=== PATIENT | female | born 2005 | race Caucasian/White ===

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

== ENCOUNTER → 2024-04-23 | Outpatient (CLI) | payer OTHER ==
[2024-04-23 20:18] LABS: Candida Group, PCR NOT DETECTED (NOT DETECT); Candida glabrata-krusei, PCR NOT DETECTED (NOT DETECT)
[2024-04-23 20:19] LABS: Bacterial Vaginosis PCR Positive (NEGATIVE)
[2024-04-23 20:49] LABS: Chlamydia Trachomatis Vaginal NOT DETECTED (NOT DETECT); Neisseria Gonorrhoea Vaginal NOT DETECTED (NOT DETECT)
[2024-04-26 09:36] LABS: HEPATITIS B SURFACE ANTIGEN Negative (Negative)
[2024-04-26 16:43] LABS: HIV 1,2 COMBO ANTIGEN/ANTIBODY Negative (Negative)
[2024-04-26 16:48] LABS: HEPATITIS C AB CIA INTERP Negative (Negative); HEPATITIS C ANTIBODY CIA INDEX 0.09 IV
== END | disposition home or self-care (01) ==
LOC: LAB SHORT 17:10 → LAB 17:10
PROVIDERS: Registered Nurse Community Health
DX: Z11.3 Encounter for screening for infections with a predominantly sexual mode of transmission (principal); Z20.2 Contact with and (suspected) exposure to infections with a predominantly sexual mode of transmission
CPT/HCPCS: 81515; 86592; 86803; 87340; 87389; 87491; 87591

== ENCOUNTER → 2025-01-28 | Outpatient (CLI) | payer OTHER ==
[~2025-01-28] MED LIST changes: +CEPH500 PO
== END ==
LOC: LAB 18:51 → LAB SHORT 18:51
DX: Z34.81 Encounter for supervision of other normal pregnancy, first trimester (principal)
CPT/HCPCS: 87081; 87150

== ENCOUNTER 2025-02-20 17:22 | Emergency (ER) | payer OTHER ==
[~2025-02-20] VITALS: Ht 157.5 cm; Wt 90.7 kg
[2025-02-20 18:19] VITALS: BP 140/63
[2025-02-21] MEDS ORDERED: PRENATAL TABLE1 EAC2 PO (08:11)
== END 2025-02-20 18:34 | disposition left against medical advice (07) ==
LOC: ER 17:22
DX: O99.891 Other specified diseases and conditions complicating pregnancy (principal); R07.0 Pain in throat; H92.09 Otalgia, unspecified ear; Z53.29 Procedure and treatment not carried out because of patient's decision for other reasons; Z3A.39 39 weeks gestation of pregnancy
CPT/HCPCS: 99281

== ENCOUNTER 2025-02-21 06:43 | Inpatient (IN) | payer OTHER ==
[2025-02-21] VITALS (18 sets, daily range): BP systolic 121–156; BP diastolic 61–95
[~2025-02-21] VITALS: Ht 157.5 cm; Wt 100.0 kg
[2025-02-21] MEDS ORDERED: Carboprost Tromethamine 250 MCG/ML 1ML Amp IM PRN ×2 (07:10→12:20)
[2025-02-21] MEDS ORDERED: Methylergonovine Maleate 0.2MG / ML 1ML Amp IM PRN ×2 (07:10→12:15)
[2025-02-21] MEDS ORDERED: OXYTOCIN/RINGER'S LACTATE 500 ML IV PRN (07:10)
[2025-02-21] MEDS ORDERED: Oxytocin 10 Unit / ML Vial IM PRN (07:10)
[2025-02-21] MEDS ORDERED: ePHEDrine Sulfate 50 MG/ML 1ML Injection XX PRN (07:10)
[2025-02-21] MEDS ORDERED: Ondansetron HCl 2 MG / ML 2ML Vial IV PRN (07:10)
[2025-02-21] MEDS ORDERED: Tranexamic Acid 100 ML IV SCH (07:10)
[2025-02-21] MEDS ORDERED: FentaNYL 2mcg/ml-Bup 0.1% Epd 250 ML EPI PRN (07:10)
[2025-02-21] MEDS ORDERED: OXYTOCIN/RINGER'S LACTATE 500 ML IV ONE ×2 (07:13→11:38)
[2025-02-21 07:17] LABS: BASOPHILS ABSOLUTE AUTO 0.03 K/mm3 (0.00-0.23); BASOPHILS PERCENT AUTO 0 % (0-2); EOSINOPHILS ABSOLUTE AUTO 0.07 K/mm3 (0.00-0.68); EOSINOPHILS PERCENT AUTO 0 % (0-6); Hematocrit 39.7 % (33.0-51.0); Hemoglobin 13.4 g/dL (11.5-16.0); IMMATURE GRAN ABSOLUTE AUTO 0.06 K/mm3 (0.00-0.10); IMMATURE GRAN PERCENT AUTO 0 % (0-1); LYMPHOCYTES ABSOLUTE AUTO 2.30 K/mm3 (0.84-5.20); LYMPHOCYTES PERCENT AUTO 15 % (21-46); MONOCYTES ABSOLUTE AUTO 1.12 K/mm3 (0.16-1.47); MONOCYTES PERCENT AUTO 7 % (4-13); Mean Corpuscular HGB Conc 33.8 g/dL (31.5-36.5); Mean Corpuscular Volume 88 fL (80-100); NEUTROPHILS ABSOLUTE AUTO 11.99 K/mm3 (1.96-9.15); NEUTROPHILS PERCENT AUTO 77 % (41-73); NRBC ABSOLUTE 0.00 K/mm3 (0.00-0.02); NRBC Auto 0.0 /100 WBC (0.0-0.2); Platelet Count 260 K/mm3 (150-400); RDW Coefficient Variation 13.4 % (11.7-14.2); RDW Standard Deviation 43.2 fL (35.1-46.3)
[2025-02-21] MEDS ORDERED: PRENATAL TABLE1 EAC2 PO (08:11)
[2025-02-21] MEDS ORDERED: FentaNYL Citrate 50 MCG/ML 2 ML Injection IV PRN (08:25)
[2025-02-21] MEDS ORDERED: CeFAZolin Sodium 2,000 MG in NS 100 ML IV ONE (11:20)
[2025-02-21] MEDS ORDERED: CeFAZolin Sodium 2,000 MG VIAL IV ONE (11:40)
[2025-02-21] MEDS ORDERED: Ketorolac Tromethamine 30mg Vial IV PRN (12:15)
[2025-02-21] MEDS ORDERED: OXYTOCIN/RINGER'S LACTATE 500 ML IV SCH (12:20)
[2025-02-21] MEDS ORDERED: Oxytocin 10 Unit / ML Vial IM ONE (12:20)
[2025-02-21] MEDS ORDERED: Witch Hazel/Glycerin PADS TOP PRN (12:20)
[2025-02-21] MEDS ORDERED: FLU VACC TS2025-26(6MOS UP)/PF 45 MCG/0.5 ML SYRINGE IM SCH (12:20)
[2025-02-21] MEDS ORDERED: Benzocaine Topical Anesthetic Spray 60GM TOP PRN (12:25)
--- NOTE | 2025-02-21 13:25 | NUR ---
02/21/[address] JOHNSON IN ROOM, BEDSIDE ULTRASOUND USED TO CHECK FOR RETAINED MEMBRANES, NONE SEEN PER DR JOHNSON, CONTINUE POST CARE
[2025-02-21] MEDS ORDERED: Methylergonovine Maleate 0.2MG / ML 1ML Amp XX ONE (15:20)
--- NOTE | 2025-02-21 18:30 | NUR ---
02/21/25 1800 pt c/o pain in her ears. She states that she has been sick with URI the past few days, and had her ear looked at and no infection was seen, yet she would like Toan or someone to take a look at it
[2025-02-22 06:16] LABS: BASOPHILS ABSOLUTE AUTO 0.03 K/mm3 (0.00-0.23); BASOPHILS PERCENT AUTO 0 % (0-2); EOSINOPHILS ABSOLUTE AUTO 0.14 K/mm3 (0.00-0.68); EOSINOPHILS PERCENT AUTO 1 % (0-6); Hematocrit 31.9 % (33.0-51.0); Hemoglobin 10.6 g/dL (11.5-16.0); IMMATURE GRAN ABSOLUTE AUTO 0.11 K/mm3 (0.00-0.10); IMMATURE GRAN PERCENT AUTO 1 % (0-1); LYMPHOCYTES ABSOLUTE AUTO 2.92 K/mm3 (0.84-5.20); LYMPHOCYTES PERCENT AUTO 18 % (21-46); MONOCYTES ABSOLUTE AUTO 1.28 K/mm3 (0.16-1.47); MONOCYTES PERCENT AUTO 8 % (4-13); Mean Corpuscular HGB Conc 33.2 g/dL (31.5-36.5); Mean Corpuscular Volume 90 fL (80-100); NEUTROPHILS ABSOLUTE AUTO 11.43 K/mm3 (1.96-9.15); NEUTROPHILS PERCENT AUTO 72 % (41-73); NRBC ABSOLUTE 0.00 K/mm3 (0.00-0.02); NRBC Auto 0.0 /100 WBC (0.0-0.2); Platelet Count 203 K/mm3 (150-400); RDW Coefficient Variation 13.6 % (11.7-14.2); RDW Standard Deviation 44.8 fL (35.1-46.3)
[2025-02-22 06:20] VITALS: BP 127/58
[2025-02-22 08:38] VITALS: BP 127/71
[2025-02-22] MEDS ORDERED: FLU VACC TS2025-26(6MOS UP)/PF 45 MCG/0.5 ML SYRINGE IM ONE (08:45)
[2025-02-22] MEDS ORDERED: Prenatal Vit/FE Fumarate/FA 1 Tab PO SCH (09:00)
[2025-02-22 14:13] VITALS: BP 120/54
== END 2025-02-22 15:05 | disposition home or self-care (01) | DRG 806 ==
LOC: OBS 06:43 → BC 06:46 → OBS 06:55 → BC 06:59
PROVIDERS: ADMIT Advanced Practice Midwife
PROC: 10E0XZZ Delivery of Products of Conception, External Approach (ICD-10-PCS; principal; 2025-02-21)
PROC: 0KQM0ZZ Repair Perineum Muscle, Open Approach (ICD-10-PCS; 2025-02-21)
PROC: 3E03329 Introduction of Other Anti-infective into Peripheral Vein, Percutaneous Approach (ICD-10-PCS; 2025-02-21)
DX: O77.0 Labor and delivery complicated by meconium in amniotic fluid (principal); O72.1 Other immediate postpartum hemorrhage; Z37.0 Single live birth; Z3A.39 39 weeks gestation of pregnancy; O69.81X0 Labor and delivery complicated by cord around neck, without compression, not applicable or unspecified; H66.91 Otitis media, unspecified, right ear; O70.1 Second degree perineal laceration during delivery; O26.893 Other specified pregnancy related conditions, third trimester; Z90.49 Acquired absence of other specified parts of digestive tract; Z79.899 Other long term (current) drug therapy
CPT/HCPCS: 36415; 59025; 85025; 86850; 86900; 86901; 86923; A9270; J0690; J1885; J2210; J2590; J3010; J7120